=== PATIENT | female | born 1965 | race Caucasian/White ===

== ENCOUNTER 2018-01-09 05:35 | Day surgery (SDC) | payer OTHER | END 2018-01-09 11:05 | disposition home or self-care (01) | LOC: CIR.AMB 05:35 | DX: M23.222 Derangement of posterior horn of medial meniscus due to old tear or injury, left knee (principal); M67.52 Plica syndrome, left knee; M92.62 Juvenile osteochondrosis of tarsus, left ankle; M65.862 Other synovitis and tenosynovitis, left lower leg; M94.262 Chondromalacia, left knee ==